=== PATIENT | female | born 1985 | race Hispanic/Latino ===

== ENCOUNTER 2020-01-04 02:38 | Inpatient (IN) | payer OTHER, SELFPAY ==
[2020-01-04 03:07] LABS: Bilirubin Moderate (Negative); Blood, Urine Trace (Negative); Glucose, Urine (Dipstick) Negative (Negative); Ketone, Urine 40 mg/dL (Negative); Leukocyte Negative (Negative); Nitrite Positive (Negative); Protein, Urine (Dipstick) 100 mg/dL (Neg-Trace); Specific Gravity, Urine 1.025 (1.005-1.030); pH, Urine 6.5 (5.0-9.0)
[2020-01-04 03:08] LABS: Clarity Hazy (Clear)
[2020-01-04 03:10] LABS: Bacteria/HPF 1+ HPF (None Seen); Other Microscopic Description Less than 2 mL rec'd; RBC/HPF 0-3 HPF (0-3); Squamous Epithelial 0-3 HPF (0-3); WBC/HPF 0-3 HPF (0-3)
[2020-01-04 03:11] LABS: Pregnancy Test - Urine (BHCG) Negative (Negative); Pregu Control Background? CLEAR/WHITE (CLR/WHITE); Pregu Control Bar Appear? YES (CONTROL BAR); Specific Gravity 1.028 (1.002-1.036)
[2020-01-04 03:19] LABS: Hemoglobin 12.8 g/dL (12.0-16.0); Mean Corpuscular HGB CONC 32.9 g/dL (32.0-36.0); Mean Corpuscular Hemoglobin 32.1 pg (27.0-31.0); Mean Corpuscular Volume 97.6 fL (78.0-98.0); Mean Platelet Volume 7.9 fL (7.4-10.4); Platelet Count 351 thou/uL (130-400); Red Blood Cell (RBC) Count 3.99 mill/uL (4.20-5.40); White Blood Cell (WBC) Count 22.1 thou/uL (4.8-10.8)
[2020-01-04 03:29] LABS: ALT (SGPT) 39 U/L (8-55); AST (SGOT) 37 U/L (5-34); Albumin 3.9 g/dL (3.5-5.0); Alkaline Phosphatase 94 U/L (40-110); Anion Gap 15 mmol/L (10-20); BUN (Urea Nitrogen) 12 mg/dL (7.0-18.7); Bilirubin, Total 0.5 mg/dL (0.2-1.2); Calc. Creatinine Clearance 0 mL/min (70-130); Calcium 9.3 mg/dL (7.8-10.44); Carbon Dioxide 26 mmol/L (22-29); Chloride 101 mmol/L (98-107); Estimated GFR-MDRD 82; Globulin 4.2 g/dL (2.4-3.5); Glucose 143 mg/dL (70-105); Potassium 3.8 mmol/L (3.5-5.1); Protein, Total 8.1 g/dL (6.0-8.3); Sodium 138 mmol/L (136-145)
[2020-01-04 03:34] LABS: Band 17 % (5-11); Lymphocytes 10 % (21-51); MDiff Complete? YES; Monocytes 10 % (0-10); Neutrophil 63 % (42-75); Platelet Morphology Comment Appears Adequate
[2020-01-04] MEDS ORDERED: cefTRIAXone\\ROCEPHIN 1 GM VIAL ONE (03:43)
[2020-01-04] MEDS ORDERED: Sodium Chloride 0.9% 100 ML ONE (04:44)
[2020-01-04] MEDS ORDERED: Piperacillin/Tazobactam 4.5 GM VIAL ONE ×2 (04:44→04:47)
[2020-01-04] MEDS ORDERED: Ondansetron PF 4 MG/2 ML Vial IVP PRN ×3 (06:15→13:55)
[2020-01-04] MEDS ORDERED: Ondansetron ODT 4 MG TAB SL PRN (06:15)
[2020-01-04] MEDS: Morphine 4 MG/ML VIAL SLOW IVP SCH ×2 (06:31→13:00)
[2020-01-04] MEDS ORDERED: Fentanyl 250 MCG/5 ML VIAL ONE (07:12)
[2020-01-04] MEDS ORDERED: Bupivacaine 0.25% HCL 30 ML VIAL ONE (08:03)
[2020-01-04] MEDS ORDERED: Lidocaine 1% w/Epinephrine 1:100K 20 ML VIAL ONE (08:03)
--- NOTE | 2020-01-04 08:41 | CT ---
PRELIMINARY REPORT/[facility]/EMERGENCY AFTER HOURS PROCEDURE: Receipt of this report by the clinical staff was confirmed with LISETTE SCOTT MD by Marybeth Anderson on Jan 04, 2020 04:43:00 CDT. Addendum electronically signed by Tara Anderson on January 04, 2020 4:42:23 AM CDT EXAM: CT Abdomen and Pelvis with Intravenous Contrast CLINICAL HISTORY: LOWER ABD PAIN X1, DIARRHEA FOR THE LAST 5 DAYS, VOMITING X2 TODAY, TOOK ADVIL ABOU T AN HOUR AGO, PATEL WHEN SHE URINATES. LAST MENSTRUAL CYCLE WAS LAST WEEK. TECHNIQUE: Axial computed tomography images of the abdomen and pelvis with intravenous contrast. CONTRAST: With; isovue 370, 95 COMPARISON: None provided. FINDINGS: LUNG BASES: No basilar airspace consolidation or pleural effusion. LIVER: Unremarkable. GALLBLADDER AND BILE DUCTS: Hydropic gallbladder, without wall thickening or pericholecystic fluid or inflammation. No calcified stone. The common bile duct measures up to the 1.1 cm, without significant intrahepatic biliary dilatation. PANCREAS: Unremarkable. SPLEEN: Unremarkable. ADRENAL GLANDS: Unremarkable. KIDNEYS, URETERS, AND BLADDER: Unremarkable. No hydronephrosis or nephrolithiasis. No ureteral or lori dder calculi. Unremarkable ureters. Decompressed urinary bladder, limiting evaluation, without gross abnormality. STOMACH AND BOWEL: Numerous dilated fluid-filled loops of small bowel within the mid abdomen, measuri ng up to 3.8 cm. Transition to normal caliber small bowel occurs within the lower mid abdomen, with multiple loops surrounding an extraluminal mesenteric fluid collection. These loops of small dank wel around the fluid collection demonstrate significant wall thickening and surrounding stranding. Unremarkable terminal ileum. The stomach and duodenum appear normal. Distal colonic diverticulosis, with some suggestion of a fistulous tract from a descending colonic diverticula and loops of small bowel about the fluid collection (coronal images 60 through 70). APPENDIX: No CT evidence for appendicitis. PERITONEUM: No free fluid. No free air. 7.0 x 6.1 x 7.5 cm mesenteric fluid collection within the mi dline lower abdomen, with surrounding stranding, and air-fluid level. LYMPH NODES: Prominent mesenteric lymph nodes, likely reactive. REPRODUCTIVE: 2.3 cm fundal fibroid. 2.5 cm right ovarian follicle. VASCULATURE: No aortic aneurysm. Unremarkable. BONES: No fracture or suspicious osseous abnormality. Mild degenerative changes of the imaged spine. ABDOMINAL WALL AND SOFT TISSUES: Partially imaged right breast implant. No significant hernia. IMPRESSION: 1. Mesenteric fluid collection measuring up to 7.5 cm, with surrounding loops of small bowel demonst rating wall thickness and surrounding inflammation and upstream dilated loops of small bowel, suggesting luminal stricture and at least partial obstruction. This may represent an abscess/localiz ed perforation secondary to inflammatory bowel disease or an inflamed Meckel's diverticula. Some suggestion of an associated fistulous tract to the distal descending colon. 2. Hydropic gallbladder, with mild biliary dilatation. Correlate with bilirubin levels and hepatic functions. May consider right upper quadrant ultrasound. ELECTRONICALLY SIGNED BY: Boni Cornejo MD Jan 04, 2020 4:38:15 AM CDT FINAL REPORT EMERGENT AFTER HOURS CT ABDOMEN AND PELVIS WITH IV CONTRAST: HISTORY: Lower abdominal pain and diarrhea and vomiting. Burning while urinating. COMPARISON: None. IMPRESSION: 1. Mesenteric fluid and gas collection in the central upper pelvis measuring 7.5 cm in greatest dimen sions with multiple surrounding loops of small bowel which demonstrate wall thickening. Inflammatory stranding is seen adjacent to the collection and loops of thick walled small bowel loops . Proximal to this region, there are dilated loops of fluid-filled small bowel measuring up to 3.6 cm. Findings may be related to partial small bowel obstruction due to inflammatory changes involving loops of small bowel in the pelvis. Findings could be attributable to inflammatory bowel disease with abscess formation. There does appear to be a fistulous tract between the thick walled loops of s mall bowel and the distal descending colon. This is best appreciated on coronal images 64 through 69. Inflamed Meckel's diverticulum is thought less likely. 2. Colonic diverticulosis. 3. Gallbladder hydrops and mild dilatation of the common duct which measures 1 cm. No obvious filling defect is seen in the common duct. There is no intrahepatic biliary ductal dilatation. Follow-up right upper quadrant ultrasound may be helpful. 4. Uterine fibroid in fundus of the uterus measuring 2.3 cm.. 5. Right adnexal cystic lesion/ovarian cyst measuring 2.7 cm. 6. Findings are in agreement with pulmonary report by [facility]. Transcribed Date/Time: 01/04/2020 8:52 AM
[2020-01-04] MEDS ORDERED: Piperacillin/Tazobactam 3.375 GM VIAL ONE (09:09)
--- NOTE | 2020-01-04 09:30 | HP ---
CHIEF COMPLAINT: Abdominal pain. HISTORY OF PRESENT ILLNESS: Ms. Luque is a 34-year-old woman with no history of previous abdominal complaints, who presented to the emergency room with a 1-week history of worsening abdominal pain in the upper abdomen. She states that it started about a week ago after eating some and she thought it was just a reaction to that, but it has been persistent since that time and growing worse. She had some subjective fevers yesterday and has had diarrhea for the past 5 days. She has had nausea for 2 days. When she came to the emergency room, she was very tachycardic into the 140s and had a low-grade fever and a high white count. She underwent a CT scan of the abdomen, which showed a large mesenteric abscess versus contained perforation with proximal small bowel obstruction. She was started on ceftriaxone initially because she had evidence of UTI on lab work, but after her CT results came back, she was switched to Zosyn. She is still hurting this morning, but has not had any fever since admission. PAST MEDICAL HISTORY: None. SOCIAL HISTORY: She smokes 2 cigarettes a day and drinks socially. PAST SURGICAL HISTORY: Breast implants and liposuction. FAMILY HISTORY: Diabetes in her father. REVIEW OF SYSTEMS: Ten-system review of systems is negative except per HPI. Specifically, no respiratory complaints. OUTPATIENT MEDICATIONS: None. She did try taking ibuprofen for her pain, but that was not effective. PHYSICAL EXAMINATION: VITAL SIGNS: Temperature 98, heart rate 93, respirations 20, 99% saturated on room air, blood pressure 121/81. GENERAL: Reveals a 34-year-old woman in moderate discomfort, holding her abdomen and grimacing. She is not flushed or toxic in appearance. She is not jaundiced or icteric. HEENT: Unremarkable. Pupils are equal and extraocular movements are intact. NECK: Supple without lymphadenopathy or thyroid nodules. HEART: Regular in its rate and rhythm without murmurs, rubs, or gallops. LUNGS: Clear to auscultation bilaterally. ABDOMEN: Soft and nondistended. She is very tender to palpation in the upper abdomen and diffusely tender elsewhere. No rigidity, rebound, or guarding. EXTREMITIES: Warm and well perfused without edema. NEURO: No focal deficits. PSYCHIATRIC: Alert, oriented, and appropriate. LABORATORY DATA: White count is elevated at 22,000 with a left shift and a bandemia of 17. Electrolytes are unremarkable. Glucose is mildly elevated at 143. AST is mildly elevated at 37. UA showed 40 ketones, 100 protein, positive nitrites, and negative leukocyte esterase. RADIOLOGY: CT images are reviewed, and I agree with the written report. No free fluid or free air in the abdomen. Distal bowel loops are decompressed. ASSESSMENT AND PLAN: Mesenteric abscess versus contained perforation. No diverticula seen in the area. The etiology of this is unclear. Patient denies ingestion of fish bones or other foreign objects, which could cause perforation and does not have any family history of inflammatory bowel disease or any preexisting chronic abdominal pain or diarrhea that would suggest occult inflammatory bowel disease. The abscess is not percutaneously accessible due to intervening bowel loops. I recommended laparoscopic drainage of the abscess and possible bowel resection if it appears to be a contained perforation from one of the adjacent loops of bowel. If bowel resection is necessary, then open surgery may be necessary as well. Inherent risks of the surgery were discussed with the patient. These include, but are not limited to, bleeding, infection, risks of anesthesia, damage to nearby structures including intestine and blood vessels, need for other procedures, need for open surgery, and anastomotic leak requiring reoperation. She understands and accepts these risks and wishes to proceed, and we will continue antibiotics perioperatively. Job ID: [id number]
[2020-01-04] MEDS ORDERED: Phenylephrine 10 MG/ML VIAL ONE (10:09)
[2020-01-04] MEDS ORDERED: Iopamidol-370 76% 500 ML 1 ML ONE (10:14)
[2020-01-04] MEDS ORDERED: PROPOFOL 200 MG/20 ML VIAL ONE (10:35)
[2020-01-04] MEDS ORDERED: PHENYLEPHRINE-NS 100 MCG/ML 10 ML SYRINGE ONE (10:35)
[2020-01-04] MEDS ORDERED: Rocuronium Bromide 10 MG/ML (10ML VIAL) ONE (10:35)
[2020-01-04] MEDS ORDERED: Lidocaine 1% PF 5 ML VIAL ONE (10:35)
[2020-01-04] MEDS ORDERED: diphenhydrAMINE 50 MG/ML VIAL ONE (10:35)
[2020-01-04] MEDS ORDERED: Ondansetron PF 4 MG/2 ML Vial ONE (10:35)
[2020-01-04] MEDS ORDERED: Piperacillin/Tazobactam 4.5 GM in Sodium Chloride 0.9% 100 ML IVPB SCH (11:00)
[2020-01-04 12:27] LABS: SARS-CoV-2 MS2 Positive; SARS-CoV-2 N Gene Negative; SARS-CoV-2 S Gene Negative; SARS-CoV-2 by NAA Not Detected (NotDetected); SARS-CoV-2 orf1ab Negative
[2020-01-04] MEDS ORDERED: SUGAMMADEX SODIUM 200 MG/2 ML VIAL ONE (13:00)
[2020-01-04] MEDS ORDERED: diphenhydrAMINE 25 MG CAP PO PRN (13:54)
[2020-01-04] MEDS ORDERED: Promethazine HCl 25 MG/ML VIAL SLOW IVP PRN (13:54)
[2020-01-04] MEDS ORDERED: Zolpidem Tartrate 5 MG TAB PO PRN (13:54)
[2020-01-04] MEDS ORDERED: Ketorolac Tromethamine 30 MG/ML VIAL IVP PRN (13:54)
[2020-01-04] MEDS ORDERED: Meperidine HCl/PF 25 MG/ML VIAL SLOW IVP PRN (13:54)
[2020-01-04] MEDS ORDERED: Promethazine HCl 25 MG/ML VIAL IM PRN ×3 (13:54→13:55)
[2020-01-04] MEDS ORDERED: diphenhydrAMINE 50 MG/ML VIAL IM PRN (13:54)
[2020-01-04] MEDS ORDERED: HYDROmorphone 2 MG/ML VIAL SLOW IVP PRN (13:54)
[2020-01-04] MEDS ORDERED: diphenhydrAMINE 50 MG/ML VIAL IVP PRN (13:54)
[2020-01-04] MEDS ORDERED: Ondansetron HCl/PF 4 MG/2 ML Vial IVP PRN (13:54)
[2020-01-04] MEDS ORDERED: Naloxone HCl 0.4 mg/ml Vial IV PRN (13:54)
[2020-01-04] MEDS ORDERED: Morphine Sulfate 2 MG/ML SYRINGE SLOW IVP PRN (13:54)
[2020-01-04] MEDS ORDERED: hydrALAZINE 20 MG/ML VIAL SLOW IVP PRN (13:55)
[2020-01-04] MEDS ORDERED: Communication Order-Pharmacy FS SCH (14:00)
[2020-01-04] MEDS: D5 1/2 NS w/20 mEq KCL 1,000 ML IV SCH ×2 (14:46→16:45)
--- NOTE | 2020-01-04 15:24 | PDOC.OP ---
Operative Note - Operative Note Operative Note: PROCEDURE: Laparoscopic hand-assisted drainage of intra-abdominal abscess and small bowel resection, sigmoid colectomy with end descending colostomy and Tor pouch, and appendectomy SURGEON: Keyla Ibarra M.D. DATE: 01/04/2020 PREOPERATIVE DIAGNOSIS: Intra-abdominal abscess and small bowel obstruction POSTOPERATIVE DIAGNOSIS: Intra-abdominal abscess resulting in small bowel obstruction, originating from sigmoid colon fistulizing to the mesentery of the small intestine, likely diverticular in origin. Appendix adherent to abscess and secondarily inflamed. HISTORY: Patient with a one-week history of abdominal pain and diarrhea for 5 days, with recent onset of nausea and vomiting for the past 2 days. She came to the emergency room where she was found to have small bowel obstruction and a large mesenteric abscess with concern for inflammatory bowel disease. Recommendation was made to proceed to the operating room for drainage of abscess and possible small bowel resection. PROCEDURE IN DETAIL: After informed consent was obtained and appropriate bowel preparation and oral and IV antibiotics were administered the patient was taken to the operating room she was placed in supine position and general endotracheal anesthesia was administered. She was placed in lithotomy position and prepped and draped in standard sterile fashion. Local anesthesia was infused the skin and subcutaneous tissues at the periumbilical area and a 6 cm incision made. Dissection was carried down to the fascia which was incised under direct vision. The peritoneal cavity was entered and no adhesions noted. A wound protector and GelPort were placed and carbon dioxide gas insufflated to an intra-abdominal pressure 15 which the patient tolerated well. 5 mm dissecting ports were placed in the right and left lateral abdomen under direct laparoscopic vision and the bowel examined. Patient was found to have multiple small bowel adhesions to a large abscess in the small bowel mesentery in the pelvis. The appendix was adherent to the abscess but had no evidence of perforation and not appear to be the source of the abscess. It appeared to be secondarily inflamed as result of adhesions to the abscess but otherwise normal. As some of the small bowel adh esions were taken off the inferior portion of the abscess cavity the abscess cavity was entered and a large amount of pus suctioned out. Since this was sent for Gram stain and culture. The abscess was found to be densely adherent to the sigmoid mesocolon and it was felt that the sigmoid was likely the origin of the abscess. There was a dense fistulous connection between the sigmoid colon and the abscess cavity which had to be divided using LigaSure. The point of obstruction of the small bowel was identified as a dense adhesion to the abscess cavity. Once this adhesion was taken down and the bowel straightened out there did not appear to be any stricture or other damage to the intestine. The small intestine immediately adjacent to the mesenteric abscess however was extremely thickened and abnormal in appearance and it was felt that this could cause obstruction or stricture in the future. It appeared however that the abnormal appearance of the small bowel was due to the abscess, rather than primary abnormality of the bowel itself. There was no creeping fat or other external signs of Crohn's disease. The decision was made to resect this segment of small intestine. The bowel was able to be externalized through the wound protector and a [id number] anastomosis created using a ASHKAN stapler. The normal- appearing bowel proximal and distal to the abscess was approximated with Lembert sutures and 2 enterotomies created. A ASHKAN stapler was passed into the normal segment of bowel and fired creating a wide [id number] anastomosis. Mesenteric windows were then created and a second load of the stapler was used to close the bowel transversely across the anastomosis excluding the enterotomies. The bowel and abnormal mesentery was resected using LigaSure and passed from the table. Attention was then turned to the abnormal sigmoid colon. The sigmoid mesocolon was densely inflamed and also densely adherent to the lateral sidewall. It was felt that an attempt to mobilize the inflamed mesocolon could potentially put the ureters at risk so the decision was made to resect the sigmoid colon close to the abdominal wall, leaving the inflamed mesocolon in place. A 12 mm port was placed under direct vision in the right lower quadrant and the mesorectum at the upper rectum just above the peritoneal reflection was divided using LigaSure and a laparoscopic stapler placed across the upper rectum. This was closed and fired dividing the upper rectum. The mesentery of the sigmoid colon were then divided immediately adjacent to the colon wall using LigaSure until the desce nding colon was encountered. There was a very dense area of fibrosis near where the fistula had been divided in the upper sigmoid colon where the colon was very densely adherent to the lateral abdominal wall and extreme care was taken and dissection in this area. Once the descending colon was reached to the lateral attachments became more normal. The white line of Toldt was able to be incised and the colon was able to be mobilized medially. Once this was done the ureter and gonadal vessels were able to be identified in the retroperitoneum, well lateral to the area of dissection. The descending colon was divided just proximal to the lymph leg segment of sigmoid colon and passed from the field with a silk suture marking the proximal margin, near the area of the fistulous tract. The descending colon was then mobilized until it was able to reach to the abdominal wall without tension. The decision was made to resect the appendix since it was secondarily inflamed. The mesoappendix was divided using LigaSure to the base of the appendix which was clearly identified at the confluence of the tenia. 2 Endoloops were placed around the base of the appendix which was normal. These were secured and the appendix divided between Endoloops and passed from the field. The entire abdominal cavity was then copiously irrigated with 6 L of warm saline. The small bowel was run from the ligament of Treitz to the ileocecal valve and no other adhesions or abnormalities found. The omentum was drawn down over the small bowel. The 12 mm trocar in the right lower quadrant was removed and the fascial defect closed with a 0 Vicryl suture on a GraNee needle under direct laparoscopic vision. A GURINDER drain was placed through the right lateral 5 mm trocar site and placed into the pelvis with the and here the inflamed mesocolon. This was secured to the skin with a drain stitch. The 5 mm left lateral trocar was removed and hemostasis verified. A circular incision was made overlying the left rectus sheath and dissection carried down to the anterior rectus sheath which was incised in a cruciate manner. The rectus muscles were split longitudinally and the posterior rectus sheath incised in a cruciate manner. The tract was dilated and the descending colon brought out through the incision and secured to the anterior rectus sheath with Lembert sutures. The GelPort and wound protector we re removed and Seprafilm placed anterior to the omentum. The fascia was closed with a running PDS suture. The wound was copiously irrigated and the skin was closed at intervals with interrupted subcuticular Monocryl sutures and iodoform packing placed to the subcutaneous tissues at the midline incision. Sterile gauze and Tegaderm dressing was then placed over this. The laparoscopic incisions were closed with subcuticular Monocryl sutures and Dermabond dressings were placed. The colostomy was then matured by excising the staple line and securing the colostomy at 4 quadrants with a full-thickness bite of the edge of the colon Lembert sutures a couple centimeters proximal and securing this to the dermis. Full-thickness bites of the colon edge to the dermis were then secured circumferentially to mature the colostomy. The colostomy was digitally examined and was patent through the fascia. The patient was extubated and taken to recovery in good condition. Estimated blood loss was minimal. There were no complications. Specimen is sigmoid colon, with suture proximal, small bowel, appendix, and pus from mesenteric abscess for Gram stain culture.
[2020-01-04] MEDS: Piperacillin/Tazobactam 3.375 GM in Sodium Chloride 0.9% 100 ML IVPB SCH ×2 (16:45→23:38)
[2020-01-04 18:18] VITALS: BMI 34.4
[2020-01-04] MEDS: Famotidine/PF 20 mg/2ml Vial SLOW IVP SCH (20:36)
[2020-01-04] MEDS: Famotidine 20 MG TAB PO SCH (21:41)
[2020-01-05] MEDS: Piperacillin/Tazobactam 3.375 GM in Sodium Chloride 0.9% 100 ML IVPB SCH ×4 (05:28→23:49)
[2020-01-05 05:29] LABS: Anion Gap 14 mmol/L (10-20); BUN (Urea Nitrogen) 5 mg/dL (7.0-18.7); Calc. Creatinine Clearance 161 mL/min (70-130); Calcium 7.5 mg/dL (7.8-10.44); Carbon Dioxide 24 mmol/L (22-29); Chloride 105 mmol/L (98-107); Estimated GFR-MDRD 84; Glucose 157 mg/dL (70-105); Potassium 3.8 mmol/L (3.5-5.1); Sodium 139 mmol/L (136-145)
[2020-01-05 05:37] LABS: Band 29 % (5-11); Hemoglobin 11.7 g/dL (12.0-16.0); Lymphocytes 12 % (21-51); MDiff Complete? YES; Mean Corpuscular HGB CONC 31.8 g/dL (32.0-36.0); Mean Corpuscular Hemoglobin 31.7 pg (27.0-31.0); Mean Corpuscular Volume 99.6 fL (78.0-98.0); Mean Platelet Volume 8.1 fL (7.4-10.4); Monocytes 6 % (0-10); Neutrophil 53 % (42-75); Platelet Count 307 thou/uL (130-400); RBC Distribution Width 12.3 % (11.5-14.5); Red Blood Cell (RBC) Count 3.68 mill/uL (4.20-5.40); White Blood Cell (WBC) Count 14.3 thou/uL (4.8-10.8)
[2020-01-05] MEDS: D5 1/2 NS w/20 mEq KCL 1,000 ML IV SCH ×3 (06:39→14:51)
[2020-01-05] MEDS: Famotidine 20 MG TAB PO SCH ×2 (08:21→20:47)
[2020-01-05] MEDS: Famotidine/PF 20 mg/2ml Vial SLOW IVP SCH ×2 (09:24→20:46)
[2020-01-05] MEDS: Enoxaparin Sodium 40 MG/0.4 ML SYRINGE SC SCH (09:35)
[2020-01-05] MEDS ORDERED: Chloraseptic Spray 180 ml Bottle PO PRN (09:58)
[2020-01-05] MEDS ORDERED: Sodium Chloride 0.9% 500 ML IV SCH (10:00)
--- NOTE | 2020-01-05 10:30 | PDOC.GSPN ---
Surgery Progress Note: Subj - Subjective Narrative: Patient is feeling okay today. She is walking in the halls with physical therapy. No gas through her ostomy yet. NG output is still bilious and she is burping. Abdomen is soft and nondistended. The ostomy looks healthy but there is no gas or stool in the bag yet. Packing was removed from the periumbilical incision and a VAC dressing was placed by the wound care team. White count is down. Heart rate is up but urine output is good. Gram-positive cocci in pairs clusters and chains and gram-negative rods on Gram stain of abscess; culture is still pending. Pathology is also pending. Assessment/plan: Status post small bowel resection and Lama's procedure for large abscess in the mesentery of the small bowel originating from the sigmoid colon. I suspect this was due to diverticular disease but the final pathology is still pending. Inflammatory bowel disease is another possibility although less likely. Continue on IV antibiotics. Likely polymicrobial infection given colonic origin. I think her tachycardia is likely due to pain and postoperative status that I am going to give her a small bolus of IV fluids to see if this helps. Her urine output has been excellent however so I do not think she is dehydrated. She had a small bowel obstruction due to adhesions to the abscess and this has yet to resolve. Continue NG decompression and n.p.o. status. Surgery Progress Note: Obj - Vital signs Vital signs: Vital Signs - Most Recent Temp Pulse Resp BP Pulse Ox 98.8 F 116 H 20 107/74 95 01/05/20 08:05 01/05/20 08:05 01/05/20 08:05 01/05/20 08:05 01/05/20 08:05 Surgery Progress Note: Results - Labs Result Diagrams: 01/05/20 04:52 01/05/20 04:52 Lab results: Laboratory Results - last 24 hr 01/05/20 01/05/20 04:52 04:52 WBC 14.3 H RBC 3.68 L Hgb 11.7 L Hct 36.7 MCV 99.6 H MCH 31.7 H MCHC 31.8 L RDW 12.3 Plt Count 307 MPV 8.1 Neutrophils % (Manual) 53 Band Neuts % (Manual) 29 H Lymphocytes % (Manual) 12 L Monocytes % (Manual) 6 Sodium 139 Potassium 3.8 Chloride 105 Carbon Dioxide 24 Anion Gap 14 BUN 5 L Creatinine 0.79 Estimated GFR (MDRD) 84 Glucose 157 H Calcium 7.5 L
[2020-01-05] MEDS ORDERED: Sodium Chloride 0.9% 1,000 ML IV SCH (21:15)
[2020-01-05] MEDS: fentaNYL Citrate/PF 2,000 MCG in Sodium Chloride 0.9% 60 ML IV PRN (21:16)
[2020-01-06] MEDS: D5 1/2 NS w/20 mEq KCL 1,000 ML IV SCH ×3 (05:04→17:53)
[2020-01-06] MEDS: Piperacillin/Tazobactam 3.375 GM in Sodium Chloride 0.9% 100 ML IVPB SCH ×4 (05:04→23:46)
[2020-01-06 05:06] LABS: #Eosinphils 0.1 thou/uL (0.0-0.7); #Lymphocytes 2.2 thou/uL (1.20-3.40); #Monocytes 1.5 thou/uL (0.11-0.59); #Neutrophils 13.6 thou/uL (1.40-6.50); %Basophils 0.2 % (0.0-1.0); %Eosinophils 0.3 % (0.0-10.0); %Lymphocytes 12.7 % (21.0-51.0); %Monocytes 8.5 % (0.0-10.0); %Neutrophils 78.4 % (42.0-75.0); Hemoglobin 11.1 g/dL (12.0-16.0); Mean Corpuscular HGB CONC 32.5 g/dL (32.0-36.0); Mean Platelet Volume 7.9 fL (7.4-10.4); Platelet Count 316 thou/uL (130-400); RBC Distribution Width 12.3 % (11.5-14.5); Red Blood Cell (RBC) Count 3.37 mill/uL (4.20-5.40); White Blood Cell (WBC) Count 17.3 thou/uL (4.8-10.8)
[2020-01-06 05:26] LABS: Anion Gap 12 mmol/L (10-20); BUN (Urea Nitrogen) 4 mg/dL (7.0-18.7); Calc. Creatinine Clearance 151 mL/min (70-130); Calcium 8.1 mg/dL (7.8-10.44); Carbon Dioxide 25 mmol/L (22-29); Chloride 108 mmol/L (98-107); Estimated GFR-MDRD 79; Glucose 135 mg/dL (70-105); Potassium 4.1 mmol/L (3.5-5.1); Sodium 141 mmol/L (136-145)
[2020-01-06] MEDS: Famotidine/PF 20 mg/2ml Vial SLOW IVP SCH ×2 (09:31→20:40)
[2020-01-06] MEDS: Famotidine 20 MG TAB PO SCH ×2 (09:31→20:41)
--- NOTE | 2020-01-06 10:04 | PDOC.GSPN ---
Surgery Progress Note: Subj - Subjective Narrative: Feels much better today. Pain has improved. No nausea bloating or gassiness. Still not passing any gas through her colostomy however and NG output is still bilious and over a liter yesterday. Urine output has been excellent. Tachycardia improved with extra IV fluids. VAC is in place. Colostomy looks healthy. Assessment/plan: Intra-abdominal abscess likely diverticular in origin status post small bowel resection and sigmoid resection with end colostomy. Awaiting resolution of small bowel obstruction. This was due to adhesions and inflammation of the small bowel adherent to the abscess. E. coli is sensitive to Zosyn. Continue antibiotics bowel rest and NG decompression and IV fluids. Patient has not really eaten in close to a week so I will start PPN. Consider TPN if bowel function does not return in the next couple days. Surgery Progress Note: Obj - Vital signs Vital signs: Vital Signs - Most Recent Temp Pulse Resp BP Pulse Ox 97.2 F L 105 H 18 101/70 97 01/06/20 08:10 01/06/20 08:10 01/06/20 08:10 01/06/20 08:10 01/06/20 08:10 Surgery Progress Note: Results - Labs Result Diagrams: 01/06/20 04:46 01/06/20 04:46 Lab results: Laboratory Results - last 24 hr 01/06/20 01/06/20 04:46 04:46 WBC 17.3 H RBC 3.37 L Hgb 11.1 L Hct 34.2 L MCV 102.0 H MCH 33.0 H MCHC 32.5 RDW 12.3 Plt Count 316 MPV 7.9 Neutrophils % 78.4 H Lymphocytes % 12.7 L Monocytes % 8.5 Eosinophils % 0.3 Basophils % 0.2 Neutrophils # 13.6 H Lymphocytes # 2.2 Monocytes # 1.5 H Eosinophils # 0.1 Basophils # 0.0 Sodium 141 Potassium 4.1 Chloride 108 H Carbon Dioxide 25 Anion Gap 12 BUN 4 L Creatinine 0.84 Estimated GFR (MDRD) 79 Glucose 135 H Calcium 8.1
[2020-01-06] MEDS ORDERED: D5W-AA 4.25% with LYTES 1,000 ML BAG IV SCH (10:15)
[2020-01-06] MEDS ORDERED: Enoxaparin Sodium 40 MG/0.4 ML SYRINGE ONE (12:00)
[2020-01-06] MEDS: Enoxaparin Sodium 40 MG/0.4 ML SYRINGE SC SCH (12:21)
[2020-01-06] MEDS: D5W-AA 4.25% with LYTES 1,000 ML IV SCH (15:14)
[2020-01-07] MEDS: Piperacillin/Tazobactam 3.375 GM in Sodium Chloride 0.9% 100 ML IVPB SCH ×3 (05:12→18:39)
[2020-01-07] MEDS: Cepastat Lozenges 1 LOZ PO PRN ×2 (05:12→09:38)
[2020-01-07] MEDS: fentaNYL Citrate/PF 2,000 MCG in Sodium Chloride 0.9% 60 ML IV PRN (06:10)
[2020-01-07] MEDS: D5 1/2 NS w/20 mEq KCL 1,000 ML IV SCH ×2 (06:11→12:21)
[2020-01-07] MEDS: Famotidine 20 MG TAB PO SCH ×2 (09:04→22:20)
[2020-01-07] MEDS: Famotidine/PF 20 mg/2ml Vial SLOW IVP SCH ×2 (09:38→20:28)
[2020-01-07] MEDS: Enoxaparin Sodium 40 MG/0.4 ML SYRINGE SC SCH (09:39)
--- NOTE | 2020-01-07 14:24 | PDOC.GSPN ---
Surgery Progress Note: Subj - Subjective Narrative: Patient is feeling better. Denies any nausea. Pain is controlled. Afebrile. Vital signs okay. NG output 400 yesterday. Still bilious. No gas in the colostomy bag. Incision is clean. Colostomy is healthy and patent. Assessment/plan: Mesenteric abscess likely originating from sigmoid:, With bowel obstruction due to adhesions to the abscess. Status post small bowel and colonic resection with end colostomy. Awaiting return of bowel function. Continue current management. Surgery Progress Note: Obj - Vital signs Vital signs: Vital Signs - Most Recent Temp Pulse Resp BP Pulse Ox 98.1 F 85 18 114/78 96 01/07/20 11:40 01/07/20 11:40 01/07/20 11:40 01/07/20 11:40 01/07/20 11:40 Surgery Progress Note: Results - Labs Result Diagrams: 01/06/20 04:46 01/06/20 04:46 Lab results: Laboratory Results - last 24 hr 01/07/20 05:41 POC Glucose 114 H
[2020-01-08] MEDS: Piperacillin/Tazobactam 3.375 GM in Sodium Chloride 0.9% 100 ML IVPB SCH ×4 (00:25→18:16)
[2020-01-08] MEDS: D5 1/2 NS w/20 mEq KCL 1,000 ML IV SCH ×2 (06:27→18:15)
[2020-01-08] MEDS: Famotidine 20 MG TAB PO SCH ×2 (08:55→20:09)
[2020-01-08] MEDS: Famotidine/PF 20 mg/2ml Vial SLOW IVP SCH ×2 (08:55→20:08)
[2020-01-08] MEDS: Enoxaparin Sodium 40 MG/0.4 ML SYRINGE SC SCH (08:55)
--- NOTE | 2020-01-08 11:08 | PDOC.GSPN ---
Surgery Progress Note: Subj - Subjective Narrative: Patient denies any nausea. Pain is controlled. No gas in the colostomy bag but the patient states that she has felt gas moving through. NG output is still bilious. Abdomen is soft and nondistended. Vital signs are good. Assessment plan: Small bowel obstruction and diverticular abscess into the mesentery of the small bowel status post resection of small bowel and sigmoid colon with small bowel anastomosis and descending colostomy. Still awaiting return of bowel function. Patient is ambulating frequently. Continue NG and bowel rest. Check labs in the morning. Surgery Progress Note: Obj - Vital signs Vital signs: Vital Signs - Most Recent Temp Pulse Resp BP Pulse Ox 98.2 F 84 16 119/83 97 01/08/20 07:30 01/08/20 07:30 01/08/20 07:30 01/08/20 07:30 01/08/20 07:30 Surgery Progress Note: Results - Labs Result Diagrams: 01/06/20 04:46 01/06/20 04:46
[2020-01-08] MEDS: fentaNYL Citrate/PF 2,000 MCG in Sodium Chloride 0.9% 60 ML IV PRN (14:35)
[2020-01-08] MEDS: D5W-AA 4.25% with LYTES 1,000 ML IV SCH (18:16)
[2020-01-09] MEDS: Piperacillin/Tazobactam 3.375 GM in Sodium Chloride 0.9% 100 ML IVPB SCH ×5 (00:11→23:52)
[2020-01-09 05:12] LABS: #Basophils 0.1 thou/uL (0.0-0.2); #Eosinphils 0.2 thou/uL (0.0-0.7); #Lymphocytes 1.9 thou/uL (1.20-3.40); #Monocytes 0.7 thou/uL (0.11-0.59); #Neutrophils 6.6 thou/uL (1.40-6.50); %Basophils 0.7 % (0.0-1.0); %Eosinophils 1.7 % (0.0-10.0); %Lymphocytes 19.9 % (21.0-51.0); %Monocytes 7.2 % (0.0-10.0); %Neutrophils 70.5 % (42.0-75.0); Hemoglobin 9.8 g/dL (12.0-16.0); Mean Corpuscular HGB CONC 32.6 g/dL (32.0-36.0); Mean Corpuscular Hemoglobin 32.8 pg (27.0-31.0); Mean Platelet Volume 7.7 fL (7.4-10.4); Platelet Count 330 thou/uL (130-400); RBC Distribution Width 11.8 % (11.5-14.5); Red Blood Cell (RBC) Count 2.99 mill/uL (4.20-5.40); White Blood Cell (WBC) Count 9.3 thou/uL (4.8-10.8)
[2020-01-09 05:33] LABS: Anion Gap 13 mmol/L (10-20); BUN (Urea Nitrogen) 8 mg/dL (7.0-18.7); Calc. Creatinine Clearance 170 mL/min (70-130); Calcium 8.3 mg/dL (7.8-10.44); Carbon Dioxide 23 mmol/L (22-29); Chloride 104 mmol/L (98-107); Estimated GFR-MDRD 90; Glucose 118 mg/dL (70-105); Potassium 3.7 mmol/L (3.5-5.1); Sodium 136 mmol/L (136-145)
[2020-01-09] MEDS: D5 1/2 NS w/20 mEq KCL 1,000 ML IV SCH ×2 (05:58→15:43)
[2020-01-09] MEDS: Famotidine/PF 20 mg/2ml Vial SLOW IVP SCH ×2 (09:53→22:10)
[2020-01-09] MEDS: Enoxaparin Sodium 40 MG/0.4 ML SYRINGE SC SCH (09:54)
[2020-01-09] MEDS: Famotidine 20 MG TAB PO SCH ×2 (09:54→22:07)
--- NOTE | 2020-01-09 13:19 | PDOC.GSPN ---
Surgery Progress Note: Subj - Subjective Narrative: Patient is feeling better today. She has passed gas and some stool through her colostomy. No nausea. Abdominal pain is minimal. Abdominal incisions look good. VAC was changed today. NG tube was removed. Assessment/plan: Status post small bowel resection and sigmoid colectomy and end colostomy for diverticular abscess perforating into the mesentery of the small intestine. She is doing well with resumption of bowel function today. I have ordered clear liquids and the nursing has been instructed to advance her diet as tolerated. If she tolerates advancement of her diet her PPN will be discontinued. She may be ready for discharge home as soon as tomorrow. She is going to follow-up in the wound care clinic for her back and for assistance with her colostomy. She is undergoing colostomy training as well. Surgery Progress Note: Obj - Vital signs Vital signs: Vital Signs - Most Recent Temp Pulse Resp BP Pulse Ox 97.7 F 83 16 118/78 98 01/09/20 11:43 01/09/20 11:43 01/09/20 11:43 01/09/20 11:43 01/09/20 11:43 Surgery Progress Note: Results - Labs Result Diagrams: 01/09/20 05:02 01/09/20 05:02 Lab results: Laboratory Results - last 24 hr 01/09/20 01/09/20 05:02 05:02 WBC 9.3 RBC 2.99 L Hgb 9.8 L Hct 30.1 L MCV 101.0 H MCH 32.8 H MCHC 32.6 RDW 11.8 Plt Count 330 MPV 7.7 Neutrophils % 70.5 Lymphocytes % 19.9 L Monocytes % 7.2 Eosinophils % 1.7 Basophils % 0.7 Neutrophils # 6.6 H Lymphocytes # 1.9 Monocytes # 0.7 H Eosinophils # 0.2 Basophils # 0.1 Sodium 136 Potassium 3.7 Chloride 104 Carbon Dioxide 23 Anion Gap 13 BUN 8 Creatinine 0.75 Estimated GFR (MDRD) 90 Glucose 118 H Calcium 8.3
[2020-01-09] MEDS: D5W-AA 4.25% with LYTES 1,000 ML IV SCH (15:42)
[2020-01-09] MEDS: fentaNYL Citrate/PF 2,000 MCG in Sodium Chloride 0.9% 60 ML IV PRN (18:31)
[2020-01-10] MEDS: Piperacillin/Tazobactam 3.375 GM in Sodium Chloride 0.9% 100 ML IVPB SCH ×3 (05:13→17:43)
[2020-01-10] MEDS: D5 1/2 NS w/20 mEq KCL 1,000 ML IV SCH (05:13)
[2020-01-10] MEDS: D5W-AA 4.25% with LYTES 1,000 ML IV SCH (05:14)
[2020-01-10] MEDS: Famotidine 20 MG TAB PO SCH ×2 (08:46→21:05)
[2020-01-10] MEDS: Famotidine/PF 20 mg/2ml Vial SLOW IVP SCH ×2 (08:47→21:05)
[2020-01-10] MEDS ORDERED: HYDROcodone/Acetaminophen 7.5/325 mg Tablet PO PRN (08:59)
[2020-01-10] MEDS ORDERED: Fentanyl 100 MCG/2 ML VIAL SLOW IVP PRN (08:59)
--- NOTE | 2020-01-10 09:10 | PRG ---
DATE OF SERVICE: 01/10/2020 SUBJECTIVE: Ms. Luque is complaining of mild bloating and anorexia, but no nausea. She did not vomit. She is complaining of the consistency of the liquid diet yesterday. She is ambulatory. No shortness of breath. OBJECTIVE: VITAL SIGNS: Afebrile. Vital signs are stable. ABDOMEN: Her abdomen is soft, appropriately tender. She has stool in her bag. Midline wound VAC. LABORATORY DATA: No new labs today. ASSESSMENT: Resolving expected postoperative ileus after Tor procedure for ruptured sigmoid diverticulitis. 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 Diet as tolerated. Home soon. Job ID: [id number]
[2020-01-10] MEDS: Enoxaparin Sodium 40 MG/0.4 ML SYRINGE SC SCH (09:55)
[2020-01-10] MEDS: HYDROcodone/Acetaminophen 7.5/325 mg Tablet PO PRN ×2 (13:15→21:10)
[2020-01-11] MEDS: Piperacillin/Tazobactam 3.375 GM in Sodium Chloride 0.9% 100 ML IVPB SCH ×4 (00:44→17:57)
[2020-01-11] MEDS: HYDROcodone/Acetaminophen 7.5/325 mg Tablet PO PRN ×3 (06:12→22:17)
--- NOTE | 2020-01-11 07:40 | PDOC.GSPN ---
Surgery Progress Note: Subj - Subjective Narrative: No complaints. Tolerated GI soft Surgery Progress Note: Obj - Vital signs Vital signs: Vital Signs - Most Recent Temp Pulse Resp BP Pulse Ox 98.1 F 64 16 114/76 97 01/11/20 03:57 01/11/20 03:57 01/11/20 03:57 01/11/20 03:57 01/11/20 03:57 - Physical Exam General: no distress Cardiovascular: regular rate and rhythm Respiratory: clear to auscultation Abdomen: soft, appropriately tender Wound: wound vac Surgery Progress Note: Results - Labs Result Diagrams: 01/09/20 05:02 01/09/20 05:02 Surgery Progress Note: A/P - Problem (1) Diverticulitis Current Visit: Yes Code(s): K57.92 - DVTRCLI OF INTEST, PART UNSP, W/O PERF OR ABSCESS W/O BLEED Status: Acute - Plan Plan: Doing well. home soon -Home wound vac -Micro shows resistance to most oral abx, continue zosyn
[2020-01-11] MEDS: Famotidine/PF 20 mg/2ml Vial SLOW IVP SCH ×2 (08:46→22:00)
[2020-01-11] MEDS: Famotidine 20 MG TAB PO SCH ×2 (08:47→22:00)
[2020-01-11] MEDS: Enoxaparin Sodium 40 MG/0.4 ML SYRINGE SC SCH (08:51)
[2020-01-12] MEDS: Piperacillin/Tazobactam 3.375 GM in Sodium Chloride 0.9% 100 ML IVPB SCH ×4 (00:37→18:33)
[2020-01-12] MEDS: HYDROcodone/Acetaminophen 7.5/325 mg Tablet PO PRN ×3 (05:55→21:40)
[2020-01-12] MEDS: Famotidine 20 MG TAB PO SCH ×2 (08:17→21:31)
[2020-01-12] MEDS: Enoxaparin Sodium 40 MG/0.4 ML SYRINGE SC SCH (08:19)
--- NOTE | 2020-01-12 09:16 | PRG ---
DATE OF SERVICE: 01/12/2020 SUBJECTIVE: Ms. Luque is complaining of more bloating today. She is tolerating the GI soft diet. She has stool in her bag. OBJECTIVE: VITAL SIGNS: She is afebrile. Vital signs are stable. Wound has the VAC. Her culture came back as a group C strep and E coli resistant to Augmentin, Cipro, Flagyl, and Bactrim. ASSESSMENT: Postop Tor's procedure for ruptured sigmoid diverticulitis with localized abscess, E coli resistant to most oral antibiotic outpatient regimens. PLAN: Her small wound at the umbilicus is granulating in well. We could show her how to do wet to dry on that today; probably another day or two in the hospital on IV antibiotics, given that oral antibiotics are going to be more difficult. Job ID: [id number]
[2020-01-12] MEDS: Famotidine/PF 20 mg/2ml Vial SLOW IVP SCH ×2 (10:37→21:31)
[2020-01-13] MEDS: Piperacillin/Tazobactam 3.375 GM in Sodium Chloride 0.9% 100 ML IVPB SCH ×5 (00:25→18:44)
[2020-01-13] MEDS: Famotidine 20 MG TAB PO SCH (09:59)
[2020-01-13] MEDS: Enoxaparin Sodium 40 MG/0.4 ML SYRINGE SC SCH (10:00)
[2020-01-13] MEDS: Famotidine/PF 20 mg/2ml Vial SLOW IVP SCH (10:00)
[2020-01-13] MEDS: HYDROcodone/Acetaminophen 7.5/325 mg Tablet PO PRN (10:04)
--- NOTE | 2020-01-13 14:05 | PDOC.GSPN ---
Surgery Progress Note: Subj - Subjective Patient reports: nausea Narrative: Patient is feeling well. Wound care team is going to supervise her doing her dressing changes. She is able to empty her colostomy bag on her own and is learning to change the appliance. She is tolerating her GI soft diet and pain is controlled on oral medications. Afebrile with normal vital signs. Abdomen is soft and nondistended. Appropriate augustine-incisional tenderness. Colostomy looks healthy. Formed stool in the bag. Assessment/plan: Diverticular abscess into the small bowel mesentery resulting in small bowel obstruction. The obstruction has resolved and she has return of bowel function. She has received an adequate course of IV antibiotics and should be ready for discharge today if she is able to demonstrate competence with her dressing changes. She is to follow-up in the outpatient wound care clinic for further ostomy training and monitoring of her abdominal wound. I will see her back in my clinic in a couple weeks. Surgery Progress Note: Obj - Vital signs Vital signs: Vital Signs - Most Recent Temp Pulse Resp BP Pulse Ox 98.4 F 62 18 103/73 97 01/13/20 04:00 01/13/20 04:00 01/13/20 04:00 01/13/20 04:00 01/13/20 04:00 Surgery Progress Note: Results - Labs Result Diagrams: 01/09/20 05:02 01/09/20 05:02
[2020-01-13 20:29] VITALS: BP 107/72; TEMP 98.5
== END 2020-01-13 20:20 | disposition home or self-care (01) | DRG 853 ==
LOC: ERS 02:38 → SURG B 06:22
PROVIDERS: ADMIT Surgery; ATTEND Surgery
PROC: 0DBN0ZZ Excision of Sigmoid Colon, Open Approach (ICD-10-PCS; principal; 2020-01-04)
PROC: 0D1M0Z4 Bypass Descending Colon to Cutaneous, Open Approach (ICD-10-PCS; 2020-01-04)
PROC: 0DSM0ZZ Reposition Descending Colon, Open Approach (ICD-10-PCS; 2020-01-04)
PROC: 0DTJ0ZZ Resection of Appendix, Open Approach (ICD-10-PCS; 2020-01-04)
DX: A41.51 Sepsis due to Escherichia coli [E. coli] (principal); K65.1 Peritoneal abscess; N39.0 Urinary tract infection, site not specified; K57.20 Diverticulitis of large intestine with perforation and abscess without bleeding; K56.50 Intestinal adhesions [bands], unspecified as to partial versus complete obstruction; K56.7 Ileus, unspecified; Z16.20 Resistance to unspecified antibiotic; Z20.828 Contact with and (suspected) exposure to other viral communicable diseases; F17.210 Nicotine dependence, cigarettes, uncomplicated
CPT/HCPCS: 36415; 36416; 74177; 80048; 80053; 81003; 81015; 81025; 83605; 83690; 85025; 87040; 87070; 87077; 87186; 87205; 87635; 88304; 88307; 93005; 94760; 96365; 96367; J0696; J1200; J1650; J2270; J2370; J2405; J2543; J2704; J3010; J3480; J3490; Q9967; S0020; S0028; U0003

== ENCOUNTER 2020-06-10 12:19 | Day surgery (SDC) | payer OTHER ==
[2020-06-09 10:06] VITALS: BMI 37.5
[~2020-06-10 12:19] MED LIST: Lidocaine 1% PF 5 ML VIAL ONE; PROPOFOL 200 MG/20 ML VIAL ONE
--- NOTE | 2020-06-10 21:31 | OP ---
DATE OF PROCEDURE: 06/10/2020 TITLE OF PROCEDURE: Colonoscopy through stoma and lower endoscopy of Tor pouch. PREPROCEDURE DIAGNOSES: 1. History of diverticulitis in December 2019 requiring sigmoid resection and end colostomy. 2. History of small-bowel resection due to a large abscess in the small-bowel mesentery. 3. Preoperative colonoscopy to evaluate the colon prior to colostomy takedown. POSTPROCEDURE DIAGNOSES: 1. Exam to cecum; good bowel preparation. 2. One diverticulum in the ascending colon, not bleeding or infected. 3. Normal-appearing distal terminal ileum. 4. Healthy-appearing colostomy stoma. 5. Examination of Tor pouch revealed copious sticky mucus and patchy erythematous diminutive polypoid lesions, likely inflammatory in origin, biopsied. 6. Small internal hemorrhoids. PROCEDURE IN DETAIL: Written informed consent was obtained. The patient was brought to the endoscopy suite. Total intravenous anesthesia was administered by Dr. Melissa Oakley and associates. The patient was placed in the left lateral decubitus position. A digital rectal exam was performed, which revealed no abnormalities. A Pentax video colonoscope was inserted through the anal canal and advanced under direct visualization to the proximal end of the Tor pouch. Endoscopic findings revealed copious sticky mucus adhering to the rectum and rectosigmoid. Much of the mucus was cleared with irrigation. This allowed improved visualization of the mucosa. In the proximal 3rd of the Tor pouch, the mucosa demonstrated multiple erythematous small polypoid lesions in a linear distribution. Biopsies were obtained for histology. The appearance was suggestive for inflammation rather than neoplastic disease. As the colonoscope was being removed from the rectum, several internal hemorrhoids were also identified. Retroflexion was not performed. The patient was then repositioned to lay supine, so that examination of the proximal portion of the colon above the colostomy could be performed. A digital exam through the ostomy stoma was performed. The stoma appeared healthy and pink. A Pentax video colonoscope was inserted through the stoma and advanced under direct visualization to the distal terminal ileum. The quality of the bowel preparation was good. Each colon segment was examined carefully as the colonoscope was slowly withdrawn from the cecum. A brief inspection of the distal terminal ileum revealed a normal ileal mucosa. The ileocecal valve appeared mildly prominent without ulceration or obvious inflammation. The colonic mucosa appeared grossly normal with normal appearing vascular pattern and haustral folds. One diverticular orifice was noted in the proximal ascending colon. There was no evidence of polyp or neoplasm. The colon segments were carefully examined as the colonoscope was withdrawn to the stoma. At that point, the colon was decompressed as the colonoscope was completely removed from the patient. She was transferred to the Day Stay surgery area for postprocedure monitoring. There were no immediate complications. RECOMMENDATIONS: 1. Await pathology results. 2. Ask the patient to call me in 1 week for pathology results. 3. Follow up with Dr. Ibarra in the next 1 to 2 weeks to schedule takedown of colostomy. 4. Follow up with GI as needed. 5. Recommend routine colon cancer screening beginning at age 45. Job ID: [id number] [facility]ENTER[facility]ol[facility]
== END 2020-06-10 16:49 | disposition home or self-care (01) ==
LOC: SDC 12:19
PROVIDERS: ATTEND Internal Medicine Gastroenterology
PROC: 0DJD8ZZ Inspection of Lower Intestinal Tract, Via Natural or Artificial Opening Endoscopic (ICD-10-PCS; principal; 2020-06-10)
DX: K57.30 Diverticulosis of large intestine without perforation or abscess without bleeding (principal); K64.8 Other hemorrhoids; F17.200 Nicotine dependence, unspecified, uncomplicated; Z93.3 Colostomy status
CPT/HCPCS: 88305; J2704

== ENCOUNTER 2020-07-02 13:00 | Inpatient (IN) | payer OTHER, SELFPAY ==
[2020-07-07] MEDS ORDERED: Ketorolac Tromethamine 30 MG/ML VIAL ONE (09:23)
[2020-07-07] MEDS ORDERED: cefOXitin Sodium/Dextrose 2 GM/50 ML BAG ONE (09:23)
[2020-07-07] MEDS ORDERED: Acetaminophen 500 MG TAB ONE (09:23)
[2020-07-07] MEDS ORDERED: Fentanyl 100 MCG/2 ML VIAL ONE ×2 (09:58→11:00)
[2020-07-07] MEDS ORDERED: Midazolam HCl 2 mg/2 ml Vial ONE (09:58)
[2020-07-07] MEDS ORDERED: Lidocaine 1% w/Epinephrine 1:100K 20 ML VIAL ONE (10:41)
[2020-07-07] MEDS ORDERED: Bupivacaine 0.25% HCL 30 ML VIAL ONE (10:41)
[2020-07-07] MEDS ORDERED: ePHEDrine 50 MG/ML VIAL ONE (11:09)
[2020-07-07] MEDS ORDERED: Glycopyrrolate 0.2 MG/ML 5 ML SYRINGE ONE (11:09)
[2020-07-07] MEDS ORDERED: Lidocaine 1% PF 5 ML VIAL ONE (11:09)
[2020-07-07] MEDS ORDERED: Rocuronium Bromide 10 MG/ML (10ML VIAL) ONE (11:09)
[2020-07-07] MEDS ORDERED: PROPOFOL 200 MG/20 ML VIAL ONE (11:09)
[2020-07-07] MEDS ORDERED: Dexamethasone 20 MG/5 ML VIAL ONE (11:09)
[2020-07-07] MEDS ORDERED: PHENYLEPHRINE-NS 100 MCG/ML 10 ML SYRINGE ONE (11:09)
[2020-07-07] MEDS ORDERED: Bupivacaine HCl 0.5%/Epinephrine 1:200,000/PF 30 ml Vial ONE (11:09)
[2020-07-07] MEDS ORDERED: Ondansetron PF 4 MG/2 ML Vial ONE (11:09)
[2020-07-07] MEDS ORDERED: HYDROmorphone 2 MG/ML VIAL SLOW IVP PRN (15:27)
[2020-07-07] MEDS ORDERED: Ondansetron HCl/PF 4 MG/2 ML Vial IVP PRN (15:27)
[2020-07-07] MEDS ORDERED: Meperidine HCl/PF 25 MG/ML VIAL SLOW IVP PRN (15:27)
[2020-07-07] MEDS ORDERED: Promethazine HCl 25 MG/ML VIAL SLOW IVP PRN (15:27)
[2020-07-07] MEDS ORDERED: Ketorolac Tromethamine 30 MG/ML VIAL IVP PRN (15:27)
[2020-07-07] MEDS ORDERED: Promethazine HCl 25 MG/ML VIAL IM PRN (15:27)
[2020-07-07] MEDS ORDERED: Morphine 2 MG/ML VIAL SLOW IVP PRN (15:48)
[2020-07-07] MEDS ORDERED: traMADol HCl 50 MG TAB PO PRN (15:51)
[2020-07-07] MEDS ORDERED: Acetaminophen 325 MG TAB PO PRN (15:52)
[2020-07-07] MEDS ORDERED: D5 1/2 NS w/20 mEq KCL 1,000 ML ONE (17:06)
[2020-07-07] MEDS: D5 1/2 NS w/20 mEq KCL 1,000 ML IV SCH (17:51)
[2020-07-07] MEDS: cefOXitin Sodium/Dextrose,Iso 2 GM in Premix Bag 1 BAG IVPB SCH (17:52)
[2020-07-07 20:25] VITALS: BMI 36.0
[2020-07-07] MEDS: HYDROcodone/Acetaminophen 5/325 mg Tablet PO PRN (20:46)
[2020-07-07] MEDS: Famotidine/PF 20 mg/2ml Vial SLOW IVP SCH (20:46)
[2020-07-07] MEDS: Famotidine 20 MG TAB PO SCH (20:47)
[2020-07-08] MEDS: cefOXitin Sodium/Dextrose,Iso 2 GM in Premix Bag 1 BAG IVPB SCH ×2 (00:01→11:10)
[2020-07-08] MEDS: D5 1/2 NS w/20 mEq KCL 1,000 ML IV SCH ×3 (04:28→21:54)
[2020-07-08] MEDS: HYDROcodone/Acetaminophen 5/325 mg Tablet PO PRN ×4 (04:30→21:06)
[2020-07-08 05:34] LABS: #Monocytes 0.8 thou/uL (0.11-0.59); #Neutrophils 12.5 thou/uL (1.40-6.50); %Basophils 0.2 % (0.0-1.0); %Eosinophils 0.1 % (0.0-10.0); %Lymphocytes 7.2 % (21.0-51.0); %Monocytes 5.5 % (0.0-10.0); Hemoglobin 11.9 g/dL (12.0-16.0); Mean Corpuscular HGB CONC 33.1 g/dL (32.0-36.0); Mean Corpuscular Hemoglobin 32.8 pg (27.0-31.0); Mean Corpuscular Volume 99.3 fL (78.0-98.0); Platelet Count 272 thou/uL (130-400); RBC Distribution Width 12.1 % (11.5-14.5); Red Blood Cell (RBC) Count 3.61 mill/uL (4.20-5.40); White Blood Cell (WBC) Count 14.3 thou/uL (4.8-10.8)
[2020-07-08 05:55] LABS: Anion Gap 13 mmol/L (10-20); BUN (Urea Nitrogen) 8 mg/dL (7.0-18.7); Calc. Creatinine Clearance 156 mL/min (70-130); Calcium 8.2 mg/dL (7.8-10.44); Carbon Dioxide 22 mmol/L (22-29); Chloride 106 mmol/L (98-107); Glucose 145 mg/dL (70-105); Sodium 137 mmol/L (136-145)
[2020-07-08] MEDS: Famotidine/PF 20 mg/2ml Vial SLOW IVP SCH ×2 (11:02→21:02)
[2020-07-08] MEDS: Enoxaparin Sodium 40 MG/0.4 ML SYRINGE SC SCH (11:03)
[2020-07-08] MEDS: Famotidine 20 MG TAB PO SCH ×2 (11:03→21:07)
[2020-07-09] MEDS: Ibuprofen 200 MG TAB PO PRN (00:39)
[2020-07-09] MEDS: HYDROcodone/Acetaminophen 5/325 mg Tablet PO PRN ×4 (06:11→21:58)
[2020-07-09 06:22] LABS: #Basophils 0.1 thou/uL (0.0-0.2); #Eosinphils 0.1 thou/uL (0.0-0.7); #Lymphocytes 2.7 thou/uL (1.20-3.40); #Monocytes 0.7 thou/uL (0.11-0.59); #Neutrophils 5.5 thou/uL (1.40-6.50); %Basophils 0.9 % (0.0-1.0); %Eosinophils 0.7 % (0.0-10.0); %Lymphocytes 30.2 % (21.0-51.0); %Monocytes 7.7 % (0.0-10.0); %Neutrophils 60.6 % (42.0-75.0); Hemoglobin 10.7 g/dL (12.0-16.0); Mean Corpuscular HGB CONC 32.6 g/dL (32.0-36.0); Mean Corpuscular Hemoglobin 33.1 pg (27.0-31.0); Platelet Count 231 thou/uL (130-400); RBC Distribution Width 12.3 % (11.5-14.5); Red Blood Cell (RBC) Count 3.23 mill/uL (4.20-5.40); White Blood Cell (WBC) Count 9.1 thou/uL (4.8-10.8)
[2020-07-09 07:00] LABS: Anion Gap 14 mmol/L (10-20); BUN (Urea Nitrogen) 7 mg/dL (7.0-18.7); Calc. Creatinine Clearance 167 mL/min (70-130); Carbon Dioxide 21 mmol/L (22-29); Chloride 107 mmol/L (98-107); Glucose 85 mg/dL (70-105); Potassium 3.7 mmol/L (3.5-5.1); Sodium 138 mmol/L (136-145)
[2020-07-09] MEDS: D5 1/2 NS w/20 mEq KCL 1,000 ML IV SCH ×2 (09:12→18:04)
[2020-07-09] MEDS: Famotidine 20 MG TAB PO SCH ×2 (09:13→20:55)
[2020-07-09] MEDS: Famotidine/PF 20 mg/2ml Vial SLOW IVP SCH ×2 (09:13→21:30)
[2020-07-09] MEDS: Enoxaparin Sodium 40 MG/0.4 ML SYRINGE SC SCH (09:13)
[2020-07-10] MEDS: D5 1/2 NS w/20 mEq KCL 1,000 ML IV SCH ×2 (03:10→12:39)
[2020-07-10] MEDS: Famotidine/PF 20 mg/2ml Vial SLOW IVP SCH ×2 (08:26→20:17)
[2020-07-10] MEDS: Ibuprofen 200 MG TAB PO PRN (08:32)
[2020-07-10] MEDS: HYDROcodone/Acetaminophen 5/325 mg Tablet PO PRN (08:32)
[2020-07-10] MEDS: Famotidine 20 MG TAB PO SCH ×2 (08:33→20:16)
[2020-07-10] MEDS: Enoxaparin Sodium 40 MG/0.4 ML SYRINGE SC SCH (08:34)
[2020-07-11] MEDS: D5 1/2 NS w/20 mEq KCL 1,000 ML IV SCH ×2 (02:06→10:10)
[2020-07-11] MEDS: HYDROcodone/Acetaminophen 5/325 mg Tablet PO PRN ×2 (04:46→10:16)
[2020-07-11] MEDS: Famotidine 20 MG TAB PO SCH (10:04)
[2020-07-11] MEDS: Enoxaparin Sodium 40 MG/0.4 ML SYRINGE SC SCH (10:05)
[2020-07-11] MEDS: Famotidine/PF 20 mg/2ml Vial SLOW IVP SCH (10:08)
[2020-07-11 11:52] VITALS: BP 120/82; TEMP 98.2
== END 2020-07-11 15:30 | disposition home or self-care (01) | DRG 346 ==
LOC: SURG A 07-07 09:07 → SURG B 07-07 17:17
PROVIDERS: ADMIT Surgery; ATTEND Surgery
PROC: 0DSM4ZZ Reposition Descending Colon, Percutaneous Endoscopic Approach (ICD-10-PCS; principal; 2020-07-07)
PROC: 0WQF4ZZ Repair Abdominal Wall, Percutaneous Endoscopic Approach (ICD-10-PCS; 2020-07-07)
DX: Z43.3 Encounter for attention to colostomy (principal); K43.5 Parastomal hernia without obstruction or gangrene; N83.209 Unspecified ovarian cyst, unspecified side; N73.6 Female pelvic peritoneal adhesions (postinfective); Z90.49 Acquired absence of other specified parts of digestive tract
CPT/HCPCS: 36415; 36416; 80048; 85025; 88302; J0694; J1100; J1650; J1885; J2250; J2405; J2704; J3010; J3480; J3490; S0020; S0028

== ENCOUNTER 2020-07-02 13:20 | Outpatient (CLI) | payer OTHER, SELFPAY | END 2020-07-02 13:21 | disposition home or self-care (01) | LOC: LABBT 13:20 | PROVIDERS: ATTEND Surgery | DX: Z01.812 Encounter for preprocedural laboratory examination (principal); Z20.822 Contact with and (suspected) exposure to COVID-19; Z93.3 Colostomy status | CPT/HCPCS: 80048; 83036; 85025; 87635; U0003; U0005 ==